=== PATIENT | male | born 1945 | race Caucasian/White ===

== ENCOUNTER 2019-03-27 10:14 | Emergency (ER) | payer MEDICARE, OTHER ==
[2019-03-27] MEDS ORDERED: TETRACAINE 0.5% STERI-UNIT SOL OP STA (11:01)
[2019-03-27] MEDS ORDERED: Fluor-I-Strip/Ful-Flo OP ONE ×2 (11:01→11:07)
[2019-03-27 11:05] LABS: BASOPHIL % 0.1 % (0.0-0.4); Basophil (Absolute #) 0.01 (0-0.4); Eosinophil % 0.1 % (0.00-5.0); Eosinophil (Absolute #) 0.01 (0-0.5); Granulocyte Absolute (ANC) 15.75 (1.4-6.9); Granulocytes % 89.6 % (36.0-66.0); Hemoglobin 15.5 gm/dl (12.5-18.0); Lymphocyte (Absolute #) 0.84 (1.0-4.6); Lymphocytes % 4.8 % (24.0-44.0); Mean Cell Volume 93.4 fl (78-100); Mean Corpuscular Hemoglobin 30.8 pg (26-32); Monocyte (Absolute #) 0.95 (0.0-1.3); Monocytes % 5.4 % (0.0-12.0); Platelet Count 175 K/mm3 (150-450); Red Blood Count 5.03 M/mm3 (4.1-5.6); Red Cell Distribution Width 14.7 % (11.5-14.0); White Blood Count 17.6 K/mm3 (4.0-10.5)
[2019-03-27] MEDS ORDERED: Eye-Stream Solution ONE (11:07)
[2019-03-27] MEDS ORDERED: TETRACAINE 0.5% STERI-UNIT SOL OP ONE (11:07)
[2019-03-27 11:10] LABS: INR 1.1 (0.8-3.0); PROTIME 12.4 SECONDS (8.83-12.87)
--- NOTE | 2019-03-27 11:12 | ERPHSYRPT ---
- History of Present Illness Time Seen by Provider: 03/27/19 11:03 Source: patient Exam Limitations: no limitations Patient Subjective Stated Complaint: left side of face is red and swollen, ptstates he has been weak and has trouble motivating. pt states he feels ill. temp 99.1 Triage Nursing Assessment: pt states he has pain and selling on l side of face, has had some trouble getting motivated, feels very tired and weak. l side of face is red and swollen.pt alert and orieted. Physician History: Pt started c/o left facial swelling and generalized weakness since yesterday evening. He stays with his son in a NH in [place], noticed redness and swelling on the left side of his face, denies insect bite or bee sting, he had low grade fever ( 99.1F) and vomited once today. 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 Timing/Duration: yesterday Severity: mild Modifying Factors: Improves With: nothing Associated Symptoms: nausea, vomiting, malaise Allergies/Adverse Reactions: No Known Drug Allergies Allergy (Unverified 03/27/19 10:44) Home Medications: Unobtainable 03/27/19 [History] - Review of Systems Constitutional: Fever, Weakness (generalized) Eyes: No Symptoms Ears, Nose, & Throat: Other (left facial redness, swelling, denies pain, burning ) Respiratory: No Symptoms Cardiac: No Symptoms Abdominal/Gastrointestinal: Nausea, Vomiting Genitourinary Symptoms: No Symptoms Musculoskeletal: No Symptoms Skin: Other (left facial erythema, swelling) Neurological: Dizziness Psychological: No Symptoms All Other Systems: Reviewed and Negative - Past Medical History Pertinent Past Medical History: Yes Cardiac History: High Cholesterol, Hypertension - Past Surgical History Past Surgical History: No - Social History Smoking Status: Former smoker Exposure to second hand smoke: Yes Drug Use: none Patient Lives Alone: No - Nursing Vital Signs Nursing Vital Signs: Initial Vital Signs Temperature 99.1 F 03/27/19 10:24 Pulse Rate 108 H 03/27/19 10:24 Blood Pressure 144/82 03/27/19 10:24 Pain Scale Pain Intensity 0 - Physical Exam General Appearance: no apparent distress Eye Exam: PERRL/EOMI, other (right eye is blind, left upper eyelid slightly swollen, no conjunctival erythema or lesions, no corneal lesions examining left eye after Tetracaine drops, no fluresceine uptake, no corneal lesions seen. ) Ears, Nose, Throat Exam: pharynx normal, moist mucous membranes Neck Exam: normal inspection, non-tender, supple, No carotid bruit, No JVD Respiratory Exam: normal breath sounds, lungs clear, airway intact, No chest tenderness Cardiovascular Exam: regular rate/rhythm, normal heart sounds, normal peripheral pulses, No murmur Gastrointestinal/Abdomen Exam: soft, normal bowel sounds, No tenderness, No distention, No mass, No guarding, No ecchymosis, No rebound, No hernia, No organomegaly Extremity Exam: normal inspection, No calf tenderness, No pedal edema Neurologic Exam: alert, oriented x 3, cooperative, normal mood/affect Skin Exam: normal color, warm, dry, other (left facial erythema, no rashes, blisters, or other lesions.) Lymphatic Exam: No adenopathy SpO2 Interpretation: normal O2 Delivery: Room Air - Course Nursing assessment & vital signs reviewed: Yes EKG Interpreted by Me: RATE, Sinus Tach (108/min), NORMAL AXIS, NORMAL QRS, Non- specific ST Changes - Radiology Exams Chest X-ray Interpretation: Interpreted by me, Negative - CT Exams Head CT Interpretation: Negative, Tele-radiologist Report, Other (left frontal meningeoma) Ordered Tests: Active Orders 24 hr Category Date Time Status Slip Box Changer STAT Care 03/27/19 10:57 Active EKG-ER Only STAT Care 03/27/19 10:56 Active IV Insertion STAT Care 03/27/19 10:56 Active Orthostatic Vital Signs STAT Care 03/27/19 10:58 Active CHEST 1 VIEW (PORTABLE) Stat Exams 03/27/19 11:13 Taken HEAD WITHOUT CONTRAST [CT] Stat Exams 03/27/19 10:58 Taken CBC W DIFF Stat Lab 03/27/19 10:45 Completed CK-Creatinine Phosphokinase Stat Lab 03/27/19 10:45 Completed CMP Stat Lab 03/27/19 10:45 Completed ETHYL ALCOHOL Stat Lab 03/27/19 10:45 Completed Erythrocyte Sedimentation Rate Stat Lab 03/27/19 10:45 Completed NT PRO BNP Stat Lab 03/27/19 10:45 Completed PROTIME WITH INR Stat Lab 03/27/19 10:45 Completed PTT Stat Lab 03/27/19 10:45 Completed TROPONIN Q3H Lab 03/27/19 10:45 Completed TROPONIN Q3H Lab 03/27/19 14:00 Ordered TROPONIN Q3H Lab 03/27/19 17:00 Ordered TROPONIN Q3H Lab 03/27/19 20:00 Ordered TROPONIN Q3H Lab 03/27/19 23:00 Ordered UA W/RFX UR CULTURE Stat Lab 03/27/19 11:55 Completed Urine Triage Profile Stat Lab 03/27/19 11:55 Completed Medication Summary Discontinued Medications Generic Name Dose Route Start Last Admin Trade Name Freq PRN Reason Stop Dose Admin Eye Irrigation Solution Confirm 03/27/19 11:07 Eye-Stream Solution Administered 03/27/19 11:08 Dose 30 ml .ROUTE .STK-MED ONE Fluorescein Sodium 1 mg 03/27/19 11:01 03/27/19 11:28 Jcync-E-Wltsr/Ful-Keith OP 03/27/19 11:02 1 mg STAT ONE Administration Fluorescein Sodium Confirm 03/27/19 11:07 Upboy-Z-Qalst/Ful-Keith Administered 03/27/19 11:08 Dose 1 mg OP .STK-MED ONE Meclizine HCl 25 mg 03/27/19 11:47 03/27/19 11:59 Antivert 25 Mg PO 03/27/19 11:48 25 mg STAT ONE Administration Meclizine HCl Confirm 03/27/19 11:58 Antivert 25 Mg Administered 03/27/19 11:59 Dose 25 mg .ROUTE .STK-MED ONE Tetracaine HCl 4 ml 03/27/19 11:01 03/27/19 11:28 Tetracaine 0.5% Steri-Unit Teagan OP 03/27/19 11:02 4 ml STAT STA Administration Tetracaine HCl Confirm 03/27/19 11:07 Tetracaine 0.5% Steri-Unit Teagan Administered 03/27/19 11:08 Dose 4 ml OP .STK-MED ONE Lab/Rad Data: Laboratory Result Diagrams 03/27/19 10:45 03/27/19 10:45 Laboratory Results 03/27/19 03/27/19 03/27/19 Range/Units 11:55 11:55 10:45 WBC (4.0-10.5) K/mm3 RBC (4.1-5.6) M/mm3 Hgb (12.5-18.0) gm/dl Hct (42-50) % MCV (78-100) fl MCH (26-32) pg MCHC (32-36) g/dl RDW (11.5-14.0) % Plt Count (150-450) K/mm3 MPV (6-9.5) fl Gran % (36.0-66.0) % Eos # (Auto) (0-0.5) Absolute Lymphs (auto) (1.0-4.6) Absolute Monos (auto) (0.0-1.3) Lymphocytes % (24.0-44.0) % Monocytes % (0.0-12.0) % Eosinophils % (0.00-5.0) % Basophils % (0.0-0.4) % Absolute Granulocytes (1.4-6.9) Basophils # (0-0.4) ESR 12 (0-15) mm/hr PT (8.83-12.87) SECONDS INR (0.8-3.0) APTT (24.1-36.1) SECONDS Sodium (137-145) mmol/L Potassium (3.5-5.1) mmol/L Chloride (98-107) mmol/L Carbon Dioxide (22-30) mmol/L Anion Gap (5-15) MEQ/L BUN (9-20) mg/dL Creatinine (0.66-1.25) mg/dL Estimated GFR ML/MIN Glucose (74-106) mg/dL Calcium (8.4-10.2) mg/dL Total Bilirubin (0.2-1.3) mg/dL AST (17-59) U/L ALT (0-50) U/L Alkaline Phosphatase (38-126) U/L Creatine Kinase (55-170) U/L Troponin I (0.000-0.034) ng/mL NT-Pro-B Natriuret Pep (0-1800) pg/mL Serum Total Protein (6.3-8.2) g/dL Albumin (3.5-5.0) g/dL Urine Color YELLOW (YELLOW) Urine Appearance CLEAR (CLEAR) Urine pH 6.0 (5-6) Ur Specific Carlotta 1.021 (1.005-1.025) Urine Protein NEGATIVE (Negative) Urine Ketones TRACE (NEGATIVE) Urine Blood NEGATIVE (0-5) Obi/ul Urine Nitrite NEGATIVE (NEGATIVE) Urine Bilirubin NEGATIVE (NEGATIVE) Urine Urobilinogen 4 (0-1) mg/dL Ur Leukocyte Esterase NEGATIVE (NEGATIVE) Urine WBC (Auto) NONE (0-5) /HPF Urine RBC (Auto) NONE (0-2) /HPF U Epithel Cells (Auto) NONE (FEW) /HPF Urine Bacteria (Auto) NONE (NEGATIVE) /HPF Urine Mucus (Auto) SLIGHT (NEGATIVE) /HPF Urine Culture Reflexed NO (NO) Urine Glucose NEGATIVE (NEGATIVE) mg/dL Urine Opiates Level NEGATIVE (NEGATIVE) Ur Methadone NEGATIVE (NEGATIVE) Urine Barbiturates NEGATIVE (NEGATIVE) Ur Phencyclidine (PCP) NEGATIVE (NEGATIVE) Urine Amphetamine NEGATIVE (NEGATIVE) U Benzodiazepine Level NEGATIVE (NEGATIVE) Urine Cocaine NEGATIVE (NEGATIVE) Urine Marijuana (THC) NEGATIVE (NEGATIVE) Ethyl Alcohol (0-10) mg/dL 03/27/19 03/27/19 03/27/19 Range/Units 10:45 10:45 10:45 WBC (4.0-10.5) K/mm3 RBC (4.1-5.6) M/mm3 Hgb (12.5-18.0) gm/dl Hct (42-50) % MCV (78-100) fl MCH (26-32) pg MCHC (32-36) g/dl RDW (11.5-14.0) % Plt Count (150-450) K/mm3 MPV (6-9.5) fl Gran % (36.0-66.0) % Eos # (Auto) (0-0.5) Absolute Lymphs (auto) (1.0-4.6) Absolute Monos (auto) (0.0-1.3) Lymphocytes % (24.0-44.0) % Monocytes % (0.0-12.0) % Eosinophils % (0.00-5.0) % Basophils % (0.0-0.4) % Absolute Granulocytes (1.4-6.9) Basophils # (0-0.4) ESR (0-15) mm/hr PT 12.4 (8.83-12.87) SECONDS INR 1.10 (0.8-3.0) APTT 32.0 (24.1-36.1) SECONDS Sodium 139 (137-145) mmol/L Potassium 4.2 (3.5-5.1) mmol/L Chloride 100 (98-107) mmol/L Carbon Dioxide 27 (22-30) mmol/L Anion Gap 15.4 H (5-15) MEQ/L BUN 17 (9-20) mg/dL Creatinine 0.87 (0.66-1.25) mg/dL Estimated GFR > 60.0 ML/MIN Glucose 113 H (74-106) mg/dL Calcium 9.7 (8.4-10.2) mg/dL Total Bilirubin 0.90 (0.2-1.3) mg/dL AST 21 (17-59) U/L ALT 19 (0-50) U/L Alkaline Phosphatase 89 (38-126) U/L Creatine Kinase 37 L (55-170) U/L Troponin I < 0.012 (0.000-0.034) ng/mL NT-Pro-B Natriuret Pep 97.1 (0-1800) pg/mL Serum Total Protein 7.5 (6.3-8.2) g/dL Albumin 4.4 (3.5-5.0) g/dL Urine Color (YELLOW) Urine Appearance (CLEAR) Urine pH (5-6) Ur Specific Carlotta (1.005-1.025) Urine Protein (Negative) Urine Ketones (NEGATIVE) Urine Blood (0-5) Obi/ul Urine Nitrite (NEGATIVE) Urine Bilirubin (NEGATIVE) Urine Urobilinogen (0-1) mg/dL Ur Leukocyte Esterase (NEGATIVE) Urine WBC (Auto) (0-5) /HPF Urine RBC (Auto) (0-2) /HPF U Epithel Cells (Auto) (FEW) /HPF Urine Bacteria (Auto) (NEGATIVE) /HPF Urine Mucus (Auto) (NEGATIVE) /HPF Urine Culture Reflexed (NO) Urine Glucose (NEGATIVE) mg/dL Urine Opiates Level (NEGATIVE) Ur Methadone (NEGATIVE) Urine Barbiturates (NEGATIVE) Ur Phencyclidine (PCP) (NEGATIVE) Urine Amphetamine (NEGATIVE) U Benzodiazepine Level (NEGATIVE) Urine Cocaine (NEGATIVE) Urine Marijuana (THC) (NEGATIVE) Ethyl Alcohol < 10 (0-10) mg/dL 03/27/19 Range/Units 10:45 WBC 17.6 H (4.0-10.5) K/mm3 RBC 5.03 (4.1-5.6) M/mm3 Hgb 15.5 (12.5-18.0) gm/dl Hct 47.0 (42-50) % MCV 93.4 (78-100) fl MCH 30.8 (26-32) pg MCHC 33.0 (32-36) g/dl RDW 14.7 H (11.5-14.0) % Plt Count 175 (150-450) K/mm3 MPV 11.0 H (6-9.5) fl Gran % 89.6 H (36.0-66.0) % Eos # (Auto) 0.01 (0-0.5) Absolute Lymphs (auto) 0.84 L (1.0-4.6) Absolute Monos (auto) 0.95 (0.0-1.3) Lymphocytes % 4.8 L (24.0-44.0) % Monocytes % 5.4 (0.0-12.0) % Eosinophils % 0.1 (0.00-5.0) % Basophils % 0.1 (0.0-0.4) % Absolute Granulocytes 15.75 H (1.4-6.9) Basophils # 0.01 (0-0.4) ESR (0-15) mm/hr PT (8.83-12.87) SECONDS INR (0.8-3.0) APTT (24.1-36.1) SECONDS Sodium (137-145) mmol/L Potassium (3.5-5.1) mmol/L Chloride (98-107) mmol/L Carbon Dioxide (22-30) mmol/L Anion Gap (5-15) MEQ/L BUN (9-20) mg/dL Creatinine (0.66-1.25) mg/dL Estimated GFR ML/MIN Glucose (74-106) mg/dL Calcium (8.4-10.2) mg/dL Total Bilirubin (0.2-1.3) mg/dL AST (17-59) U/L ALT (0-50) U/L Alkaline Phosphatase (38-126) U/L Creatine Kinase (55-170) U/L Troponin I (0.000-0.034) ng/mL NT-Pro-B Natriuret Pep (0-1800) pg/mL Serum Total Protein (6.3-8.2) g/dL Albumin (3.5-5.0) g/dL Urine Color (YELLOW) Urine Appearance (CLEAR) Urine pH (5-6) Ur Specific Carlotta (1.005-1.025) Urine Protein (Negative) Urine Ketones (NEGATIVE) Urine Blood (0-5) Obi/ul Urine Nitrite (NEGATIVE) Urine Bilirubin (NEGATIVE) Urine Urobilinogen (0-1) mg/dL Ur Leukocyte Esterase (NEGATIVE) Urine WBC (Auto) (0-5) /HPF Urine RBC (Auto) (0-2) /HPF U Epithel Cells (Auto) (FEW) /HPF Urine Bacteria (Auto) (NEGATIVE) /HPF Urine Mucus (Auto) (NEGATIVE) /HPF Urine Culture Reflexed (NO) Urine Glucose (NEGATIVE) mg/dL Urine Opiates Level (NEGATIVE) Ur Methadone (NEGATIVE) Urine Barbiturates (NEGATIVE) Ur Phencyclidine (PCP) (NEGATIVE) Urine Amphetamine (NEGATIVE) U Benzodiazepine Level (NEGATIVE) Urine Cocaine (NEGATIVE) Urine Marijuana (THC) (NEGATIVE) Ethyl Alcohol (0-10) mg/dL - Progress Progress: improved Progress Note: 03/27/19 13:00 Pt has been stable, denies any pain, or nausea, except generalized weakness, no orthostatic, ambulates without help, stable, not ataxic, reviewed all his results, discussed with him and his daughter, will start on Acyclovir for possible facial shingles, and discharge to follow up with his physician in 2-3 days. Counseled pt/family regarding: lab results, diagnosis, need for follow-up, rad results - Departure Departure Disposition: Home Clinical Impression: Shingles Qualifiers: Herpes zoster complications: without complications Qualified Code(s): B02.9 - Zoster without complications Condition: Stable Critical Care Time: No Referrals: GEORGE BENTON [Primary Care Provider] - Instructions: Shingles (DC) Additional Instructions: Rest x 2-3 days, drink plenty of fluids, and follow up with your physician in 2- 3 days, take Acyclovir as directed for 7 days, return if severe headaches, vomiting, focal weakness, dizziness, confusion or fever> 102 F!
[2019-03-27 11:25] LABS: ALBUMIN 4.4 g/dL (3.5-5.0); ALKALINE PHOSPHATASE 89 U/L (38-126); ANION GAP 15.4 MEQ/L (5-15); BLOOD UREA NITROGEN 17 mg/dL (9-20); CHLORIDE 100 mmol/L (98-107); CK-Creatinine Phosphokinase 37 U/L (55-170); Calcium 9.7 mg/dL (8.4-10.2); Carbon Dioxide 27 mmol/L (22-30); Creatinine 1 0.87 mg/dL (0.66-1.25); Glucose 113 mg/dL (74-106); NT PRO BNP 97.1 pg/mL (0-1800); Potassium 4.2 mmol/L (3.5-5.1); SGOT/AST 21 U/L (17-59); SGPT/ALT 19 U/L (0-50); SODIUM 139 mmol/L (137-145); Total Protein 7.5 g/dL (6.3-8.2)
[2019-03-27 11:27] LABS: ETHYL ALCOHOL < 10 mg/dL (0-10)
[2019-03-27] MEDS ORDERED: ANTIVERT 25 MG PO ONE (11:47)
[2019-03-27] MEDS ORDERED: ANTIVERT 25 MG ONE (11:58)
[2019-03-27 12:21] LABS: Appearance CLEAR (CLEAR); Bilirubin NEGATIVE (NEGATIVE); Blood NEGATIVE Ery/ul (0-5); Glucose NEGATIVE (NEGATIVE); Ketones TRACE (NEGATIVE); Leukocyte Esterase NEGATIVE (NEGATIVE); Mucus SLIGHT /HPF (NEGATIVE); Nitrite NEGATIVE (NEGATIVE); Protein,Urine Dip NEGATIVE (Negative); Specific Gravity 1.021 (1.005-1.025); Urobilinogen 4 mg/dL (0-1)
[2019-03-27 12:26] LABS: Amphetamine,Urine NEGATIVE (NEGATIVE); Barbiturate,Urine NEGATIVE (NEGATIVE); Benzodiazepine,Urine NEGATIVE (NEGATIVE); Cocaine,Urine NEGATIVE (NEGATIVE); Methadone,Urine NEGATIVE (NEGATIVE); Opiate,Urine NEGATIVE (NEGATIVE); PCP,Urine NEGATIVE (NEGATIVE); THC,Urine NEGATIVE (NEGATIVE)
[2019-03-27] MEDS ORDERED: ZOVIRAX 800 MG PO ONE (12:59)
[2019-03-27 13:23] VITALS: BP 130/79; PULSE 92; O2SAT 95
--- NOTE | 2019-03-27 20:03 | XRAY ---
Indication: Dizziness. Comparison: December 19, 2009. Portable chest again demonstrates COPD with scattered fibrosis/scarring and left base nipple shadow. No focal infiltrate, consolidation, or large effusion. Heart is not enlarged. Bony thorax intact again with mild osteopenia, degenerative changes, and old left clavicle fracture. Impression: Stable nonacute chest with chronic features.
--- NOTE | 2019-03-27 20:05 | XRAY ---
Indication: Dizziness and weakness. Nausea. Multiple contiguous axial images obtained through the head without contrast. Comparison: None Age-appropriate global atrophy and minimal periventricular degenerative micro-ischemia bilaterally. High left right 2.2 cm calcified meningioma. No acute intracranial hemorrhage, abnormal extra-axial fluid collection, or mass effect. Fourth ventricle is midline without hydrocephalus. Cardona-white matter differentiation preserved. Bony calvarium intact. Visualized paranasal sinuses and mastoid air cells are clear. Impression: Nonacute senile brain with left parietal calcified meningioma. Comment: Preliminary interpretation was made by [facility]. No critical discrepancy. CTDI 67.80
== END 2019-03-27 13:22 | disposition home or self-care (01) ==
LOC: ED 10:14
DX: B02.9 Zoster without complications (principal); R11.2 Nausea with vomiting, unspecified; R42 Dizziness and giddiness
CPT/HCPCS: 36000; 36415; 70450; 71045; 80053; 80307; 81001; 82550; 83880; 84484; 85025; 85610; 85652; 85730; 93005; 93041; 99284; G0480; A9270-GY

== ENCOUNTER 2020-10-27 15:52 | Emergency (ER) | payer MEDICARE, OTHER ==
[2020-10-27] MEDS ORDERED: CITROMA 296 ML ONE (16:30)
[2020-10-27] MEDS: CITROMA 296 ML PO ONE (16:32)
--- NOTE | 2020-10-27 16:39 | ERPHSYRPT ---
- History of Present Illness Time Seen by Provider: 10/27/20 16:15 Historian: patient Exam Limitations: no limitations Patient Subjective Stated Complaint: no BM for a week now,has had castor oil, laxative,.stool softner, mag citrate, pt had some testes ran and was told he had tumors in abd and lung, is to see an oncologist next week Triage Nursing Assessment: pt walked in, resp easy, skin w/d/p, abd soft and nontender Physician History: This is a 75-year-old white male relatively asymptomatic from what he is concerned about of constipation. Approximately 10 days ago he noticed constipation symptoms eventually he took MiraLAX, magnesium citrate, stool softeners with mild response approximately 5 days ago. Since that time he is repeated the magnesium citrate and the other modes of therapy but these did not help in relieving constipation. However, the patient has been eating, drinking and passing flatus. He has no significant abdominal pain per his report. He did have a CAT scan of his abdomen and pelvis which showed the possibility of long and intra-abdominal malignancies. There was no mention of significant intracolonic stools or evidence of any type of bowel obstruction on the CAT scan of the abdomen pelvis with contrast 4 days ago. He is to see a oncologist next week. He came to the emergency department because he is concerned that he has not had a bowel movement in several days. Timing/Duration: day(s) (5) Activities at Onset: none Quality: other (No significant abdominal pain) Severity of Pain-Max: none Severity of Pain-Current: none Modifying Factors: Improves With: other (Magnesium citrate, the first time, helped pass flatus and have a bowel movement 5 days ago.) Associated Symptoms: No nausea, No shortness of breath, No vomiting Previous symptoms: no prior history Allergies/Adverse Reactions: No Known Drug Allergies Allergy (Verified 10/27/20 16:08) Home Medications: No Reportable Medications [No Reported Medications] 10/27/20 [History] Hx Influenza Vaccination/Date Given: No Hx Pneumococcal Vaccination/Date Given: No Immunizations Up to Date: Yes Travel Risk - International Travel Have you traveled outside of the country in past 3 weeks: No - Coronavirus Screening Are you exhibiting any of the following symptoms?: No Close contact with a COVID-19 positive Pt in past 14-21 Days: No - Review of Systems Constitutional: No Symptoms Eyes: No Symptoms Ears, Nose, & Throat: No Symptoms Respiratory: No Symptoms Cardiac: No Symptoms Abdominal/Gastrointestinal: Constipation, No Abdominal Pain, No Nausea, No Vomiting, No Diarrhea Genitourinary Symptoms: No Symptoms Musculoskeletal: No Symptoms Skin: No Symptoms Neurological: No Symptoms Psychological: No Symptoms Endocrine: No Symptoms Hematologic/Lymphatic: No Symptoms Immunological/Allergic: No Symptoms All Other Systems: Reviewed and Negative - Past Medical History Pertinent Past Medical History: Yes Neurological History: No Pertinent History ENT History: No Pertinent History Cardiac History: High Cholesterol, Hypertension Respiratory History: No Pertinent History Endocrine Medical History: No Pertinent History Musculoskeletal History: No Pertinent History GI Medical History: No Pertinent History History: No Pertinent History Psycho-Social History: No Pertinent History Male Reproductive Disorders: No Pertinent History Other Medical History: 2020 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 - Past Surgical History Past Surgical History: No - Social History Smoking Status: Former smoker Exposure to second hand smoke: Yes Drug Use: none Patient Lives Alone: No - Nursing Vital Signs Nursing Vital Signs: Initial Vital Signs Temperature 98.7 F 10/27/20 15:56 Pulse Rate 87 10/27/20 15:56 Respiratory Rate 16 10/27/20 15:56 Blood Pressure 166/99 10/27/20 15:56 O2 Sat by Pulse Oximetry 94 L 10/27/20 15:56 Pain Scale Pain Intensity 0 - Physical Exam General Appearance: no apparent distress, alert Eye Exam: PERRL/EOMI Ears, Nose, Throat Exam: normal ENT inspection, moist mucous membranes Neck Exam: normal inspection, non-tender, supple, full range of motion Respiratory Exam: normal breath sounds, lungs clear, airway intact, No chest tenderness, No respiratory distress Cardiovascular Exam: regular rate/rhythm, normal heart sounds, normal peripheral pulses Gastrointestinal/Abdomen Exam: soft, normal bowel sounds, No tenderness Rectal Exam: not done Back Exam: normal inspection, normal range of motion, No CVA tenderness, No vertebral tenderness Extremity Exam: normal inspection, normal range of motion, pelvis stable Neurologic Exam: alert, oriented x 3, cooperative, improvement coordinator II-XII nml as tested, normal mood/affect, nml cerebellar function, nml station & gait, sensation nml Skin Exam: normal color, warm, No dry Lymphatic Exam: No adenopathy SpO2 Interpretation: borderline oxygenation SpO2: 94 - Course Nursing assessment & vital signs reviewed: Yes Ordered Tests: Active Orders 24 hr Category Date Time Status Enema STAT Care 10/27/20 16:27 Active Medication Summary Discontinued Medications Generic Name Dose Route Start Last Admin Trade Name Dominguez PRN Reason Stop Dose Admin Magnesium Citrate 296 ml 10/27/20 16:27 10/27/20 16:32 Citroma 296 Ml PO 10/27/20 16:28 296 ml STAT ONE Administration Magnesium Citrate Confirm 10/27/20 16:30 Citroma 296 Ml Administered 10/27/20 16:31 Dose 296 ml .ROUTE .STK-MED ONE - Progress Progress: improved, re-examined Progress Note: 10/27/20 17:50 Medical decision making: This patient is asymptomatic from his "constipation". Patient was given a bottle of magnesium citrate orally followed by a soapsuds enema. He is passing flatus but had no solid bowel movement. Patient states that he is hungry he has no nausea no vomiting no abdominal pain. He only came into the hospital because he has not had a formed stool but he is passing flatus. I told the patient that he should continue using MiraLAX daily. He should be on a full liquid to soft diet. I told him that he needs to follow-up with Dr. Teague in her office on Friday10/30/2020. I told him he may have peritoneal carcinomatosis. This could explain his symptoms. He does have an appointment scheduled with an oncologist next week. Counseled pt/family regarding: diagnosis, need for follow-up - Departure Departure Disposition: Home Clinical Impression: Ileus, unspecified Condition: Stable Critical Care Time: No Referrals: JULIO CÉSAR TEAGUE MD [Primary Care Provider] - Additional Instructions: Full liquid to soft food diet as tolerated. Continue taking MiraLAX daily. Follow-up with your primary care physician's office on 10/30/2020. Keep your appointment next week with your oncologist. Return to the emergency department if you are having nausea vomiting, abdominal pain.
[2020-10-27 17:33] VITALS: BP 123/72; PULSE 76
[2020-10-27 17:53] VITALS: O2SAT 94
== END 2020-10-27 17:55 | disposition home or self-care (01) ==
LOC: ED 15:52
DX: K56.7 Ileus, unspecified (principal); I10 Essential (primary) hypertension; E78.00 Pure hypercholesterolemia, unspecified; Z81.2 Family history of tobacco abuse and dependence; Z84.89 Family history of other specified conditions
CPT/HCPCS: 99283; A9270-GY

== ENCOUNTER 2020-11-23 12:28 | Emergency (ER) | payer MEDICARE, OTHER ==
--- NOTE | 2020-11-23 12:44 | ERPHSYRPT ---
- History of Present Illness Time Seen by Provider: 11/23/20 12:35 Source: patient, EMS Exam Limitations: no limitations Physician History: This is a 75-year-old white male who lives at home and fell this morning approximately 8 AM. Patient was in the bathroom using the commode when he lost his balance and hit his left hip on the bathtub. He does not have head or neck pain. However, he reports hitting his head. He only has a complaint of left hip pain. Patient crawled to the phone to contact his daughter. EMS arrived and when not moving the patient's left hip he has no pain. However he does not want to bear weight or move his left hip. Patient denies chest pain he denies shortness of breath. 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 He is being worked up for this. Next Friday he has a follow-up appointment on these findings. Patient takes no medications at this time. Occurred: this morning Reason for Fall: lost balance Injuries/Pain Location: lower extremity (Left hip) Loss of Consciousness: no loss of consciousness Quality: aching Severity of Pain-Max: moderate Severity of Pain-Current: moderate Modifying Factors: Improves With: movement Associated Symptoms (Fall): extremity injury (Left hip pain), trouble walking (Secondary to left hip pain) Allergies/Adverse Reactions: No Known Drug Allergies Allergy (Verified 11/23/20 12:47) Home Medications: No Reportable Medications [No Reported Medications] 10/27/20 [History] Hx Influenza Vaccination/Date Given: No Hx Pneumococcal Vaccination/Date Given: No Travel Risk - International Travel Have you traveled outside of the country in past 3 weeks: No - Coronavirus Screening Are you exhibiting any of the following symptoms?: No Close contact with a COVID-19 positive Pt in past 14-21 Days: No - Vaccine Status Have you recieved a Covid-19 vaccination: No - Review of Systems Constitutional: No Symptoms Eyes: No Symptoms Ears, Nose, & Throat: No Symptoms Respiratory: No Symptoms Cardiac: No Symptoms Abdominal/Gastrointestinal: No Symptoms Genitourinary Symptoms: No Symptoms Musculoskeletal: Fall, Injury (Left hip pain) Skin: No Symptoms Neurological: No Symptoms Psychological: No Symptoms Endocrine: No Symptoms Hematologic/Lymphatic: No Symptoms Immunological/Allergic: No Symptoms All Other Systems: Reviewed and Negative - Past Medical History Pertinent Past Medical History: Yes Neurological History: No Pertinent History ENT History: No Pertinent History Cardiac History: High Cholesterol, Hypertension Respiratory History: No Pertinent History Endocrine Medical History: No Pertinent History Musculoskeletal History: No Pertinent History GI Medical History: No Pertinent History History: No Pertinent History Psycho-Social History: No Pertinent History Male Reproductive Disorders: No Pertinent History Other Medical History: 2020 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 - Past Surgical History Past Surgical History: No - Social History Smoking Status: Former smoker Exposure to second hand smoke: Yes Drug Use: none Patient Lives Alone: No - Nursing Vital Signs Nursing Vital Signs: Initial Vital Signs Temperature 98.3 F 11/23/20 12:37 Pulse Rate 100 H 11/23/20 12:37 Respiratory Rate 17 11/23/20 12:37 Blood Pressure 129/97 11/23/20 12:37 O2 Sat by Pulse Oximetry 94 L 11/23/20 12:37 Pain Scale Pain Intensity 0 - Michael Coma Score Best Eye Response (Michael): (4) open spontaneously Best Verbal Response ([place]): (5) oriented Best Motor Response (Michael): (6) obeys commands Michael Total: 15 - Physical Exam General Appearance: no apparent distress, alert, anxiety, thin Head Injury: no evidence of injury Eye Exam: PERRL/EOMI, eyes nml inspection ENT Exam: airway nml, nml ext.inspection, No evidence of ENT injury Neck Exam: supple, trachea midline, full range of motion, normal alignment, normal inspection Respiratory/Chest Exam: normal breath sounds, No chest tenderness, No respiratory distress, No ecchymosis, No crepitus Cardiovascular Exam: normal heart sounds, regular rate/rhythm Gastrointestinal Exam: soft, normal bowel sounds, No tenderness Rectal Exam: not done Back Exam: normal inspection, normal range of motion, CVA tenderness Extremity Exam: normal inspection, limited range of motion (Left hip), hip tenderness (Left), pain with movement (Left hip), weight bearing (Left hip tenderness), No sensory deficit Neurologic Exam: alert, oriented x 3, cooperative, 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, normal mood/affect, sensation nml Skin Exam: normal color, warm, dry SpO2 Interpretation: normal O2 Delivery: Room Air Ordered Tests: Active Orders 24 hr Category Date Time Status EKG-ER Only STAT Care 11/23/20 12:45 Active IV Insertion STAT Care 11/23/20 12:45 Active Pulse Oximetry (ED) STAT Care 11/23/20 12:45 Active FEMUR Stat Exams 11/23/20 12:48 Completed HEAD WITHOUT CONTRAST [CT] Stat Exams 11/23/20 13:04 Completed HIP UNI (2V) INCL PEL IF DONE Stat Exams 11/23/20 12:47 Completed CBC W DIFF Stat Lab 11/23/20 13:45 Completed CMP Stat Lab 11/23/20 13:45 Completed Medication Summary Discontinued Medications Generic Name Dose Route Start Last Admin Trade Name Dominguez PRN Reason Stop Dose Admin Morphine Sulfate 4 mg 11/23/20 12:45 11/23/20 12:53 Morphine Sulfate 4 Mg Inj IV 11/23/20 12:46 4 mg STAT ONE Administration Morphine Sulfate Confirm 11/23/20 12:51 Morphine Sulfate 4 Mg Inj Administered 11/23/20 12:52 Dose 4 mg .ROUTE .STK-MED ONE Ondansetron HCl 4 mg 11/23/20 12:46 11/23/20 12:53 Zofran 4 Mg/2 Ml Vial IV 11/23/20 12:47 4 mg STAT ONE Administration Ondansetron HCl Confirm 11/23/20 12:51 Zofran 4 Mg/2 Ml Vial Administered 11/23/20 12:52 Dose 4 mg .ROUTE .STK-MED ONE Lab/Rad Data: Laboratory Result Diagrams 11/23/20 13:45 11/23/20 13:45 Laboratory Results 11/23/20 11/23/20 Range/Units 13:45 13:45 WBC 10.4 (4.0-10.5) K/mm3 RBC 4.69 (4.1-5.6) M/mm3 Hgb 13.4 (12.5-18.0) gm/dl Hct 42.3 (42-50) % MCV 90.2 (78-100) fl MCH 28.6 (26-32) pg MCHC 31.7 L (32-36) g/dl RDW 14.8 H (11.5-14.0) % Plt Count 283 (150-450) K/mm3 MPV 10.2 (7.5-11.0) fl Gran % 88.7 H (36.0-66.0) % Eos # (Auto) 0.02 (0-0.5) Absolute Lymphs (auto) 0.54 L (1.0-4.6) Absolute Monos (auto) 0.61 (0.0-1.3) Lymphocytes % 5.2 L (24.0-44.0) % Monocytes % 5.9 (0.0-12.0) % Eosinophils % 0.2 (0.00-5.0) % Basophils % 0.0 (0.0-0.4) % Absolute Granulocytes 9.19 H (1.4-6.9) Basophils # 0 (0-0.4) Sodium 136 L (137-145) mmol/L Potassium 4.2 (3.5-5.1) mmol/L Chloride 96 L (98-107) mmol/L Carbon Dioxide 32 H (22-30) mmol/L Anion Gap 11.4 (5-15) MEQ/L BUN 13 (9-20) mg/dL Creatinine 1.12 (0.66-1.25) mg/dL Estimated GFR > 60.0 ML/MIN Glucose 112 H (74-106) mg/dL Calcium 9.6 (8.4-10.2) mg/dL Total Bilirubin 0.50 (0.2-1.3) mg/dL AST 23 (17-59) U/L ALT 16 (0-50) U/L Alkaline Phosphatase 91 (38-126) U/L Serum Total Protein 7.3 (6.3-8.2) g/dL Albumin 4.0 (3.5-5.0) g/dL - Progress Progress: improved, pain not gone completely Progress Note: 11/23/20 13:40 CAT scan of the head without contrast reveals a nonacute senile brain. 11/23/20 14:26 The x-ray of the patient's left hip shows a nondisplaced intertrochanteric fracture. Medical decision making: This patient has a nondisplaced intertrochanteric fracture of the left hip. Patient also has been worked up for evaluation of intra-abdominal tumors by drafting layout worker/oncologist out of [facility]. The patient wants to be transferred there for his orthopedic care in order to get the hip fracture evaluated and managed as well as follow-up information by his drafting layout worker oncologist at [facility]. I spoke with Dr. Michel who is the hospitalist at [facility]. I reviewed the patient history, radiographic findings and results of this patient's work-up. Dr. Michel accepts the patient in transfer. Counseled pt/family regarding: lab results, diagnosis, need for follow-up, rad results - Departure Departure Disposition: Transfer Clinical Impression: Fracture, intertrochanteric, left femur Condition: Stable Critical Care Time: No Referrals: JULIO CÉSAR ALVARES MD [Primary Care Provider] -
[2020-11-23] MEDS ORDERED: MORPHINE SULFATE 4 MG INJ IV ONE ×2 (12:45→16:03)
[2020-11-23] MEDS ORDERED: Zofran 4 MG/2 ML VIAL IV ONE (12:46)
[2020-11-23] MEDS ORDERED: MORPHINE SULFATE 4 MG INJ ONE ×2 (12:51→16:02)
[2020-11-23] MEDS ORDERED: Zofran 4 MG/2 ML VIAL ONE (12:51)
--- NOTE | 2020-11-23 13:22 | XRAY ---
Indication: Head injury following fall. Multiple contiguous axial images obtained through the head without contrast. Comparison: March 27, 2019. There is again age-appropriate global atrophy, minimal periventricular degenerative micro-ischemia, and 2.2 cm high left parietal calcified meningioma. No acute intracranial hemorrhage, abnormal extra-axial fluid collection, or mass effect. Cardona-white matter differentiation preserved. Fourth ventricle is midline without hydrocephalus. Bony calvarium intact. Visualized paranasal sinuses and mastoid air cells are clear. Impression: Again nonacute senile brain with stable left parietal calcified meningioma.
--- NOTE | 2020-11-23 13:42 | XRAY ---
Indication: Pain following fall. Limited range of motion. Comparison: None 2 view left femur demonstrates nondisplaced intertrochanteric fracture. Elsewhere osteopenia and minimal scattered vascular calcifications. No other bony, articular, or soft tissue abnormalities.
--- NOTE | 2020-11-23 13:47 | XRAY ---
Indication: Pain following fall. Limited range of motion. Comparison: None AP pelvis and 2 view left hip demonstrates nondisplaced left intertrochanteric fracture. Elsewhere osteopenia and minimal vascular calcifications. No other bony, articular, or soft tissue abnormalities.
[2020-11-23 14:02] LABS: Absolute Neutrophil Ct (ANC) 9.19 (1.4-6.9); Basophil (Absolute #) 0 (0-0.4); Eosinophil % 0.2 % (0.00-5.0); Eosinophil (Absolute #) 0.02 (0-0.5); Hematocrit 42.3 % (42-50); Hemoglobin 13.4 gm/dl (12.5-18.0); Lymphocyte (Absolute #) 0.54 (1.0-4.6); Lymphocytes % 5.2 % (24.0-44.0); Mean Cell Volume 90.2 fl (78-100); Mean Corpuscular Hemoglobin 28.6 pg (26-32); Mean Corpuscular Hgb Concent. 31.7 g/dl (32-36); Mean Platelet Volume 10.2 fl (7.5-11.0); Monocyte (Absolute #) 0.61 (0.0-1.3); Monocytes % 5.9 % (0.0-12.0); Neutrophil % 88.7 % (36.0-66.0); Platelet Count 283 K/mm3 (150-450); Red Blood Count 4.69 M/mm3 (4.1-5.6); Red Cell Distribution Width 14.8 % (11.5-14.0); White Blood Count 10.4 K/mm3 (4.0-10.5)
[2020-11-23 14:16] LABS: ALKALINE PHOSPHATASE 91 U/L (38-126); ANION GAP 11.4 MEQ/L (5-15); BLOOD UREA NITROGEN 13 mg/dL (9-20); CHLORIDE 96 mmol/L (98-107); Calcium 9.6 mg/dL (8.4-10.2); Carbon Dioxide 32 mmol/L (22-30); Creatinine 1 1.12 mg/dL (0.66-1.25); EST GLOMERULAR FILTRATION RATE > 60.0 ML/MIN; Glucose 112 mg/dL (74-106); Potassium 4.2 mmol/L (3.5-5.1); SGOT/AST 23 U/L (17-59); SGPT/ALT 16 U/L (0-50); SODIUM 136 mmol/L (137-145); Total Protein 7.3 g/dL (6.3-8.2)
[2020-11-23 16:08] VITALS: BP 140/82; PULSE 92; O2SAT 97
[2020-11-23 16:57] LABS: Slide Review 1 YES
== END 2020-11-23 16:18 | disposition short-term general hospital (02) ==
LOC: ED 12:28
DX: S72.142A Displaced intertrochanteric fracture of left femur, initial encounter for closed fracture (principal); M25.552 Pain in left hip; I10 Essential (primary) hypertension; E78.00 Pure hypercholesterolemia, unspecified; W01.198A Fall on same level from slipping, tripping and stumbling with subsequent striking against other object, initial encounter; Y93.89 Activity, other specified; Y92.89 Other specified places as the place of occurrence of the external cause
CPT/HCPCS: 36000; 36415; 70450; 73502; 73552; 80053; 85025; 93005; 94760; 96374; 96375; 96376; 99285; J2270; J2405